=== PATIENT | male | born 2000 | race Caucasian/White ===

== ENCOUNTER 2020-02-19 22:43 | Emergency (ER) | payer OTHER ==
[~2020-02-19] VITALS: Ht 187.9 cm; Wt 72.7 kg
--- NOTE | 2020-02-19 23:04 | ED Fall/Injury ---
General Chief Complaint: Lower Extremity Stated Complaint: FELL,FOOT PAIN Source: patient Exam Limitations: no limitations History of Present Illness Date Seen by Provider: Feb 19, 2020 Time Seen by Provider: 22:48 Initial Comments Patient arrives to ER by private conveyance with chief complaint that about 2 hours prior to arrival he was working in the freezer and moving a palate wojciech which rolled up over his left foot causing him to tumble backwards landing on his left elbow olecranon process. He's has a little pain but full range of motion in his left elbow. He's having pain and tingling in his left foot. He's been using ice but no Tylenol or Motrin. No previous surgery but he did have a history of broken foot when he was in high school. No other significant medical history except for seasonal allergies for which she occasionally takes Benadryl. He said the had to push the pallet wojciech off with his right hand and it was on his foot for about 20 seconds. He is having pain in both sides of his ankle as well as the top of his left foot. No other injuries. He did not strike his head nor lose consciousness. No nausea or vomiting. No fever cough chills recent travel or sick contacts. Allergies and Home Medications Allergies Coded Allergies: No Known Drug Allergies (Unverified , 02/19/20) Patient Home Medication List Home Medication List Reviewed: Yes Review of Systems Review of Systems Constitutional: No chills, No fever Eyes: Denies Blindness, Denies Blurred Vision Ears, Nose, Mouth, Throat: denies ear pain, denies ear discharge Respiratory: No cough, No short of breath Cardiovascular: No chest pain, No edema Gastrointestinal: No abdominal pain, No nausea, No vomiting Musculoskeletal: No back pain; joint pain (left foot ankle and left elbow) Skin: other (two new superficial abrasions on his medial anterior distal leg left. Old abrasion on the dorsum of his foot from a mosquito bite) All Other Systems Reviewed Negative Unless Noted: Yes Past Kdzzcyn-Lpetnd-Oiuyug Hx Patient Social History Alcohol Use: Denies Use Recreational Drug Use: No Smoking Status: Never a Smoker Recent Foreign Travel: No Contact w/Someone Who Travel: No Physical Exam Vital Signs Vital Signs - First Documented 02/19/20 22:56 Temp 37.2 Pulse 88 Resp 16 B/P (MAP) 141/81 (101) O2 Delivery Room Air Capillary Refill : Height, Weight, BMI Height: '" Weight: lbs. oz. kg; BMI Method: General Appearance: WD/WN, mild distress HEENT: PERRL/EOMI, pharynx normal Cardiovascular: normal peripheral pulses, regular rate, rhythm Respiratory: no respiratory distress, no accessory muscle use Peripheral Pulses: 1+ Dorsalis Pedis (R), 1+ Left Dors-Pedis (L) Extremities: normal range of motion, normal capillary refill (less than 2 seconds all 5 digits of the left foot), other (superficial, shallow ulcer on the dorsum of the left foot that is old and healing. Tenderness to palpation over the dorsum of all 5 metatarsals with mild erythema and subtle swelling. Tenderness on the posterior bilateral ankle malleolar processes) Neurologic/Psychiatric: no motor/sensory deficits, alert, normal mood/affect, oriented x 3 Skin: other (two 4 mm superficial abrasions on the anterior medial surface of the distal left leg that are hemostatic.) Sultana Coma Score Best Eye Response: (4) Open Spontaneously Best Verbal Response: (5) Oriented Best Motor Response: (6) Obeys Commands Sonia Total: 15 Progress/Results/Core Measures Results/Orders My Orders Orders - LAURENT AVILA Ankle 3 View Left (02/19/20 22:55) Elbow 2 View Left (02/19/20 22:55) Foot 3 View Left (02/19/20 22:55) Tibia Fibula 2 View Left (02/19/20 22:55) Vital Signs/I&O 02/19/20 22:56 Temp 37.2 Pulse 88 Resp 16 B/P (MAP) 141/81 (101) O2 Delivery Room Air Progress Progress Note : Time: 23:00 Progress Note He has good palpable pulses and brisk capillary refill. His sensation is intact. Tendons appear to be intact. He is having pain in the dorsum of his foot as well as bilateral ankle. He does not want anything for the pain presently. Plan to get plain films of his left elbow, left ankle and left foot. Maisonneuve fracture is possible as he has tenderness on direct compression of the proximal tibia fibula heads so a tibia-fibula 2 view will be obtained looking for a Maisonnueve fracture. Diagnostic Imaging Diagonstic Imaging: Xray Plain Films/CT/US/NM/MRI: elbow (left) Comments No acute osseous abnormalities. Reviewed: Reviewed by Me Diagonstic Imaging: Xray Plain Films/CT/US/NM/MRI: leg (tibia/fibula left) Comments No acute osseous abnormalities. Reviewed: Reviewed by Me Diagonstic Imaging: Xray Plain Films/CT/US/NM/MRI: ankle (left) Comments No acute osseous abnormalities. Joint spaces are maintained. Reviewed: Reviewed by Me Diagonstic Imaging: Xray Plain Films/CT/US/NM/MRI: other (left foot) Comments No acute osseous abnormalities. Reviewed: Reviewed by Me Departure Impression Primary Impression: Left foot pain Additional Impressions: Left ankle pain Qualified Codes: M25.572 - Pain in left ankle and joints of left foot Left elbow pain Fall Qualified Codes: W19.XXXA - Unspecified fall, initial encounter Disposition: HOME, SELF-CARE Condition: Stable Departure-Patient Inst. Decision time for Depature: 23:26 Referrals: NO,LOCAL PHYSICIAN (PCP/Family) Primary Care Physician Patient Instructions: Ankle Sprain (DC), Foot Sprain (DC) Add. Discharge Instructions: Rest your foot when you don't need to be on it. Elevate your foot above the level of your heart to reduce swelling and pain. Ice 20 minutes on every 2-4 hours for the first 2 days. Wrap your foot with an Dick bandage for compression for the first week. Tylenol 1000 mg every 8 hours as necessary for pain. Ibuprofen 800 mg every 8 hours as necessary for pain. If you're not seeing some significant improvement in 7-10 days then please follow-up with your primary care doctor for reexamination. Expect to have some pain for one to 2 weeks. Crutches for the first week or 2 as necessary. Weightbearing as tolerated. All discharge instructions reviewed with patient and/or family. Voiced understanding. Work/School Note: Work Release Form Date Seen in the Emergency Department: Feb 19, 2020 Return to Work: Feb 20, 2020 Restrictions: Need Release from Doctor Other Restrictions Listed Below: Crutches and minimal weightbearing on left foot as tolerated until 03/03/20. LAURENT AVILA Feb 19, 2020 23:04
[2020-02-19 23:30] VITALS: BP 141/81
--- NOTE | 2020-02-20 07:00 | Diagnostic Imaging Report ---
INDICATION: Fall. Pulled pallet of food on the left leg. FINDINGS: 2 views. Tibia and fibula are intact. Knee and ankle show good alignment. There are no fractures. IMPRESSION: Negative left tibia and fibula. Dictated by: Dictated on workstation # [id number]
--- NOTE | 2020-02-20 07:07 | Diagnostic Imaging Report ---
INDICATION: Fall. Pallet of frozen food fell on foot. Left elbow pain. FINDINGS: 2 views. Radius and ulna are in good alignment with capitellum and trochlea. Articulating surfaces are smooth. No joint effusion. There are no fractures. IMPRESSION: Negative left elbow. Dictated by: Dictated on workstation # [id number]
--- NOTE | 2020-02-20 07:41 | Diagnostic Imaging Report ---
INDICATION: Pallet fell on left ankle. FINDINGS: 3 views. Ankle mortise in good alignment. Articulating surfaces are smooth. Joint spaces are well-maintained. No fracture. IMPRESSION: Negative left ankle. Dictated by: Dictated on workstation # [id number]
--- NOTE | 2020-02-20 07:44 | Diagnostic Imaging Report ---
INDICATION: Pallet fell on left foot. Pain. FINDINGS: 3 views. No fractures or dislocation. Thickening surfaces are smooth. Joint spaces well-maintained. IMPRESSION: Negative left foot. Dictated by: Dictated on workstation # [id number]
== END 2020-02-19 23:38 | disposition home or self-care (01) ==
LOC: ER FS 22:44
DX: S80.812A Abrasion, left lower leg, initial encounter (principal); M25.572 Pain in left ankle and joints of left foot; M25.522 Pain in left elbow; R40.2142 Coma scale, eyes open, spontaneous, at arrival to emergency department; R40.2252 Coma scale, best verbal response, oriented, at arrival to emergency department; R40.2362 Coma scale, best motor response, obeys commands, at arrival to emergency department; W18.39XA Other fall on same level, initial encounter
CPT/HCPCS: 73070; 73590; 73610; 73630